=== PATIENT | female | born 1970 | race Caucasian/White ===

== ENCOUNTER 2018-11-04 02:18 | Emergency (ER) | payer OTHER ==
[2018-11-04 02:46] LABS: #Eosinphils 0.1 thou/uL (0.0-0.7); #Monocytes 0.3 thou/uL (0.11-0.59); #Neutrophils 4.1 thou/uL (1.40-6.50); %Basophils 0.9 % (0.0-1.0); %Eosinophils 0.9 % (0.0-10.0); %Neutrophils 74.2 % (42.0-75.0); Hemoglobin 12.4 g/dL (12.0-16.0); Mean Corpuscular Hemoglobin 30.8 pg (27.0-31.0); Mean Corpuscular Volume 93.5 fL (78.0-98.0); Mean Platelet Volume 8.3 fL (7.4-10.4); Platelet Count 225 thou/uL (130-400); RBC Distribution Width 12.3 % (11.5-14.5); Red Blood Cell (RBC) Count 4.01 mill/uL (4.20-5.40); White Blood Cell (WBC) Count 5.5 thou/uL (4.8-10.8)
[2018-11-04] MEDS ORDERED: Ketamine 50 MG/ML (10ML VIAL) ONE (02:53)
[2018-11-04] MEDS ORDERED: Ondansetron PF 4 MG/2 ML Vial ONE (03:32)
--- NOTE | 2018-11-04 07:46 | RAD ---
THREE VIEWS LEFT WRIST: HISTORY: Fall with left wrist pain. FINDINGS: Three views left wrist show a comminuted fracture of the distal radius and associated ulnar styloid f racture. There is also a fracture to the scaphoid waist. Surrounding soft tissue swelling is seen. IMPRESSION: 1. Distal radius and associated ulnar styloid fracture. 2. Scaphoid waist fracture. POS: [facility]
--- NOTE | 2018-11-04 09:01 | RAD ---
LEFT WRIST 2 VIEWS: HISTORY: Post reduction. COMPARISON: Earlier exam same day. FINDINGS: The distal radial and ulnar styloid fractures are again demonstrated. Slight reduction of the dorsal angulation of the distal radial fracture. The scaphoid fracture is more difficult to visualize on t his exam. IMPRESSION: Reduction of distal radial fracture. POS: [facility]
== END 2018-11-04 04:12 | disposition home or self-care (01) ==
LOC: ERS 02:18
DX: S62.002A Unspecified fracture of navicular [scaphoid] bone of left wrist, initial encounter for closed fracture (principal); S52.502A Unspecified fracture of the lower end of left radius, initial encounter for closed fracture; S52.612A Displaced fracture of left ulna styloid process, initial encounter for closed fracture; F41.9 Anxiety disorder, unspecified; Z79.899 Other long term (current) drug therapy; W19.XXXA Unspecified fall, initial encounter
CPT/HCPCS: 25605; 85025; 93005; 96374; 99156; J2405

== ENCOUNTER 2018-11-06 09:34 | Day surgery (SDC) | payer OTHER ==
[2018-11-05 15:52] VITALS: BMI 31.4
[2018-11-06] MEDS ORDERED: ceFAZolin Sodium (SDC) 2 GM/100 ML BAG ONE (09:56)
[2018-11-06] MEDS ORDERED: Midazolam HCl 2 mg/2 ml Vial ONE (10:17)
[2018-11-06] MEDS ORDERED: Fentanyl 100 MCG/2 ML VIAL ONE ×2 (10:17→10:50)
[2018-11-06] MEDS ORDERED: Ropivacaine 0.2% 550 ML 550 ML NERVE BLCK SCH (10:47)
[2018-11-06] MEDS ORDERED: HYDROcodone/Acetaminophen 5/325 mg Tablet PO PRN ×2 (10:47)
[2018-11-06] MEDS ORDERED: Promethazine HCl 25 MG/ML VIAL IM PRN (10:47)
[2018-11-06] MEDS ORDERED: traMADol HCl 50 MG TAB PO PRN ×2 (10:47)
[2018-11-06] MEDS ORDERED: Ondansetron PF 4 MG/2 ML Vial IVP PRN (10:47)
[2018-11-06] MEDS ORDERED: Zolpidem Tartrate 5 MG TAB PO PRN (10:47)
[2018-11-06] MEDS ORDERED: Ketorolac Tromethamine 30 MG/ML VIAL IVP PRN (10:47)
[2018-11-06] MEDS ORDERED: Fentanyl 100 MCG/2 ML VIAL IV PRN (10:49)
[2018-11-06] MEDS ORDERED: Bupivacaine HCl 0.5%/Epinephrine 1:200,000/PF 30 ml Vial ONE (11:21)
--- NOTE | 2018-11-06 13:29 | RAD ---
4 fluoroscopic spot images of the left wrist INDICATION: Open reduction image internal fixation of a distal radial fracture and scaphoid fracture COMPARISON: Radiographs of left wrist dated November 04, 2018 FINDINGS: Since the comparison examination there is been interval open reduction internal fixation of the distal radius fracture. Fracture alignment is near anatomic. The instrumentation projects in expected position. There is a Anthony screw fixating the patient scaphoid fracture. Fracture alignment is near anatomic . The ulnar styloid process fracture is unchanged in position. IMPRESSION: Interval ORIF of the left wrist fractures
--- NOTE | 2018-11-06 14:33 | OP ---
DATE OF PROCEDURE: 11/06/2018 OPERATIONS: 1. Open reduction and internal fixation of left distal radius fracture. 2. Open reduction and internal fixation of left scaphoid fracture. PREOPERATIVE DIAGNOSIS: Left displaced distal radius and scaphoid fracture. POSTOPERATIVE DIAGNOSIS: Left displaced distal radius and scaphoid fracture. COMPLICATIONS: None. ESTIMATED BLOOD LOSS: 50 mL. ANESTHESIA: General plus regional. IMPLANTS: Synthes 3.0-mm partially-threaded screw, headless; and a distal radial plate, volar locking. INDICATIONS: Ms. Carballo fell from a golf cart. She fractured the left radius and scaphoid bone. She was indicated for open reduction and internal fixation to restore anatomic alignment and promote healing. Risks have been reviewed in detail. She elected to proceed with the operation. DESCRIPTION OF PROCEDURE: Ms. Carballo was identified in the preoperative holding area. Her correct extremity was marked. She was carried to the operating room. She was positioned supine. General anesthesia was induced. A multidisciplinary time-out was performed. The left upper extremity was prepped and draped in sterile fashion. We began the procedure with a volar approach to the distal radius. We dissected down through the subcutaneous tissues to the fascia over the FCR tendon. The tendon sheath was opened. We then reflected the tendon and opened the deep aspect of the sheath. At this point, we reflected the pronator quadratus from the distal radius. We examined the fracture, which was comminuted and displaced. We irrigated. We then reduced the fracture using a [place] elevator. At this point, we held this with a K-wire. We then placed our volar distal radial plate. This was placed proximally with a nonlocking screw followed by multiple distal locking screws. We took x-ray images, confirming hardware and plate placement. There were no complications. The reduction was anatomic. We took final images. We thoroughly irrigated this wound and closed in layers appropriately including Monocryl for the skin. At this point, we moved to the scaphoid fracture. We made a small incision dorsally, centered over the scaphoid bone. We dissected down through the subcutaneous tissues and protected neurovascular structures. We then made a small incision into the wrist joint through the capsule. This exposed the proximal pole of the scaphoid. This allowed us to obtain an appropriate start point. We inserted our guidewire from proximal to distal. We overdrilled the guidewire. We then placed our headless compression screw, which was 20-mm in length. This was seated appropriately. We took x-ray images, confirming that it was not prominent. We removed our guidewire. We thoroughly irrigated. We then closed the small wound in layers. We placed the patient in a well-padded splint. She was taken to the recovery room in good condition without complication. Job ID: [id number]
== END 2018-11-06 14:55 | disposition home or self-care (01) ==
LOC: SDC 09:34
PROVIDERS: ATTEND Orthopaedic Surgery
PROC: 0PSN04Z Reposition Left Carpal with Internal Fixation Device, Open Approach (ICD-10-PCS; principal; 2018-11-06)
PROC: 0PSJ04Z Reposition Left Radius with Internal Fixation Device, Open Approach (ICD-10-PCS; principal; 2018-11-06)
PROC: 3E0T3BZ Introduction of Anesthetic Agent into Peripheral Nerves and Plexi, Percutaneous Approach (ICD-10-PCS; principal; 2018-11-06)
DX: S52.532A Colles' fracture of left radius, initial encounter for closed fracture (principal); S62.025A Nondisplaced fracture of middle third of navicular [scaphoid] bone of left wrist, initial encounter for closed fracture; G89.18 Other acute postprocedural pain; Z79.899 Other long term (current) drug therapy; V86.99XA Unspecified occupant of other special all-terrain or other off-road motor vehicle injured in nontraffic accident, initial encounter
CPT/HCPCS: 76000; A4306; C1713; J0670; J0690; J2250; J2795; J3010

== ENCOUNTER 2019-08-18 19:57 | Inpatient (IN) | payer OTHER ==
--- NOTE | 2019-08-18 20:41 | RAD ---
XR Chest 1 View Portable HISTORY: Nausea, vomiting, right upper quadrant abdominal pain COMPARISON: 09/10/2011 FINDINGS: The heart size is normal. The lungs are well expanded without focal areas of consolidation, pneumothorax or pleural effusions. IMPRESSION: No radiographic evidence of acute cardiopulmonary process.
[2019-08-18] MEDS ORDERED: Lidocaine Viscous Sol 2% 15 ml UD Cup ONE (20:45)
[2019-08-18] MEDS ORDERED: Mag-Al 1200 mg/1200 mg/30 ML UDCUP ONE (20:45)
[2019-08-18 20:52] LABS: Bilirubin Negative (Negative); Blood, Urine Negative (Negative); Clarity Clear (Clear); Glucose, Urine (Dipstick) Normal (Negative); Leukocyte Negative Leu/uL (Negative); Nitrite Negative (Negative); Protein, Urine (Dipstick) Negative (Neg-Trace); Urobilinogen Normal mg/dL (Less than 2)
[2019-08-18] MEDS ORDERED: Ondansetron PF 4 MG/2 ML Vial ONE (21:20)
[2019-08-18] MEDS ORDERED: Pantoprazole 40 MG VIAL ONE (21:20)
[2019-08-18] MEDS ORDERED: Morphine 4 MG/ML VIAL ONE (21:20)
[2019-08-18 21:24] LABS: #Eosinphils 0.2 thou/uL (0.0-0.7); #Lymphocytes 1.6 thou/uL (1.20-3.40); #Monocytes 0.5 thou/uL (0.11-0.59); #Neutrophils 5.6 thou/uL (1.40-6.50); %Basophils 0.4 % (0.0-1.0); %Eosinophils 2.5 % (0.0-10.0); %Lymphocytes 20.3 % (21.0-51.0); %Monocytes 6.4 % (0.0-10.0); %Neutrophils 70.3 % (42.0-75.0); Mean Corpuscular HGB CONC 32.4 g/dL (32.0-36.0); Mean Corpuscular Hemoglobin 30.8 pg (27.0-31.0); Mean Platelet Volume 8.9 fL (7.4-10.4); Platelet Count 230 thou/uL (130-400); RBC Distribution Width 12.1 % (11.5-14.5); Red Blood Cell (RBC) Count 4.22 mill/uL (4.20-5.40)
[2019-08-18 21:47] LABS: ALT (SGPT) 16 U/L (8-55); AST (SGOT) 17 U/L (5-34); Albumin 4.2 g/dL (3.5-5.0); Alkaline Phosphatase 65 U/L (40-110); Anion Gap 12 mmol/L (10-20); BUN (Urea Nitrogen) 11 mg/dL (7.0-18.7); Bilirubin, Total 0.2 mg/dL (0.2-1.2); CK (CPK) 215 U/L (29-168); Calc. Creatinine Clearance 0 mL/min (70-130); Carbon Dioxide 24 mmol/L (22-29); Chloride 106 mmol/L (98-107); Estimated GFR-MDRD 69; Globulin 3.1 g/dL (2.4-3.5); Glucose 112 mg/dL (70-105); Lipase 32 U/L (8-78); Potassium 4.2 mmol/L (3.5-5.1); Protein, Total 7.3 g/dL (6.0-8.3); Sodium 138 mmol/L (136-145)
[2019-08-18 21:48] LABS: BHCG - Serum Negative (NEGATIVE); Pregs Control Background? CLEAR/WHITE (CLR/WHITE); Pregs Control Bar Appear? YES (CONTROL BAR)
--- NOTE | 2019-08-18 22:00 | ULT ---
GALLBLADDER ULTRASOUND: HISTORY: Right upper quadrant abdominal pain FINDINGS: The liver demonstrates homogeneous echotexture without focal mass or intrahepatic biliary ductal dila tation. There are shadowing gallstones with gallbladder wall thickening measuring 4 mm in thickness. No peric holecystic fluid is seen. The right kidney is normal. The pancreas is not well visualized due to overlying bowel gas. The common duct [id number] in diameter. No free fluid is seen in the Donaldson's pouch. IMPRESSION: Cholelithiasis with mild gallbladder wall thickening. If there is concern for acute cholecystitis, HIDA scan should be performed.
[2019-08-18] MEDS ORDERED: MEROPENEM 1 GM/50 ML 1 GM in Premix Bag 1 BAG IVPB SCH (22:45)
[2019-08-18] MEDS ORDERED: D5 1/2 NS w/20 mEq KCL 1,000 ML IV SCH (23:45)
[2019-08-18] MEDS ORDERED: Ondansetron ODT 4 MG TAB SL PRN (23:47)
[2019-08-18] MEDS ORDERED: Ondansetron PF 4 MG/2 ML Vial IVP PRN (23:47)
[2019-08-18] MEDS ORDERED: Morphine 4 MG/ML VIAL SLOW IVP PRN (23:48)
[2019-08-19] MEDS ORDERED: Zolpidem Tartrate 5 MG TAB PO SCH ×2 (00:30→21:00)
[2019-08-19 01:35] VITALS: BMI 37.8
[2019-08-19] MEDS ORDERED: Ketorolac Tromethamine 30 MG/ML VIAL IVP PRN (04:53)
[2019-08-19] MEDS ORDERED: Morphine 4 MG/ML VIAL SLOW IVP PRN (04:53)
--- NOTE | 2019-08-19 08:53 | HP ---
HISTORY OF PRESENT ILLNESS: A 49-year-old female, single furlough during the COVID pandemic, previously worked at [employer], has had for the past week intermittent pain epigastric right upper quadrant. She had acute pain onset 2 days ago, unrelenting, presented to the emergency room, found to have multiple gallstones with normal common bile duct caliber of 3 mm. There is no ductal dilatation. Liver function tests are normal. ALLERGIES: NONE. SOCIAL HISTORY: Tobacco, none. Alcohol rarely. MEDICATIONS: Zolpidem, escitalopram. PAST SURGICAL HISTORY: Rotator cuff, ORIF left wrist. PAST MEDICAL HISTORY: Noncontributory otherwise. REVIEW OF SYSTEMS: Noncontributory 10 point. FAMILY HISTORY: Noncontributory. PHYSICAL EXAMINATION: VITAL SIGNS: Height 5 foot 6 inches, 234 pounds, 37 BMI, 97.9, 69, 95/62. HEENT: Unremarkable. LUNGS: Clear to auscultation. CARDIAC: Regular rate and rhythm. No murmur or gallop. ABDOMEN: Soft. Tenderness in right upper quadrant with mild guarding. EXTREMITIES: Unremarkable. ASSESSMENT AND PLAN: Acute cholecystitis, cholelithiasis, chronic cholecystitis. Recommend laparoscopic video cholecystectomy. Risks of infection, bleeding, visceral and biliary injury explained. Questions answered. Process explained to the patient. Plan discharge home later today. She notes that [employer] does not work well for controlling her pain. Job ID: [id number]
[2019-08-19] MEDS ORDERED: Ibuprofen 600 MG TAB PO PRN (09:15)
[2019-08-19] MEDS ORDERED: Acetaminophen 500 MG TAB PO PRN (09:15)
[2019-08-19] MEDS ORDERED: HYDROcodone/Acetaminophen 5/325 mg Tablet PO PRN ×2 (09:15)
[2019-08-19] MEDS ORDERED: Bupivacaine PF 0.5% 30 ML VIAL ONE (09:43)
[2019-08-19] MEDS ORDERED: Lidocaine 1% w/Epinephrine 1:100K 20 ML VIAL ONE (09:43)
[2019-08-19] MEDS ORDERED: Ondansetron PF 4 MG/2 ML Vial ONE (09:50)
[2019-08-19] MEDS ORDERED: Rocuronium Bromide 10 MG/ML (10ML VIAL) ONE (09:50)
[2019-08-19] MEDS ORDERED: Lidocaine 1% PF 5 ML VIAL ONE (09:50)
[2019-08-19] MEDS ORDERED: PHENYLEPHRINE-NS 100 MCG/ML 10 ML SYRINGE ONE (09:50)
[2019-08-19] MEDS ORDERED: Fentanyl 100 MCG/2 ML VIAL ONE ×2 (09:50→11:10)
[2019-08-19] MEDS ORDERED: Dexamethasone 20 MG/5 ML VIAL ONE (09:50)
[2019-08-19] MEDS ORDERED: PROPOFOL 200 MG/20 ML VIAL ONE (09:50)
[2019-08-19] MEDS ORDERED: Glycopyrrolate 0.2 MG/ML 5 ML SYRINGE ONE (09:50)
[2019-08-19] MEDS ORDERED: SUGAMMADEX SODIUM 200 MG/2 ML VIAL ONE (10:50)
[2019-08-19] MEDS ORDERED: Promethazine HCl 25 MG/ML VIAL ONE (11:00)
--- NOTE | 2019-08-19 11:53 | OP ---
DATE OF PROCEDURE: 08/19/2019 PREOPERATIVE DIAGNOSES: Chronic cholecystitis, cholelithiasis, acute cholecystitis. POSTOPERATIVE DIAGNOSES: Chronic cholecystitis, cholelithiasis, acute cholecystitis. PROCEDURE PERFORMED: Laparoscopic video cholecystectomy. ANESTHESIA: General, local 0.5% Marcaine 30 mL mixed to 1% Xylocaine with epinephrine 20 mL. DESCRIPTION OF PROCEDURE: The patient was taken to the operating room where under general anesthesia, abdomen was prepared with ChloraPrep and draped in the routine fashion. Local anesthetic was infiltrated in the skin and subcutaneous tissue at each port site. A vertical incision was made and pneumoperitoneum to 15 mmHg was obtained with a Veress needle, replaced with a 5 port, video laparoscope inserted. Right subxiphoid incision was made and 11 port placed. Right subcostal incision was made at midclavicular entrance line and the 5 port was placed. Liver appeared to be normal. The fundus of the gallbladder was grasped at cephalad. Infundibulum was grasped and reflected laterally. Cystic artery and duct were dissected free. Critical view obtained. Cystic artery and duct double clipped proximally and divided, gallbladder dissected free from liver bed, obtaining good hemostasis prior to division of the final peritoneal attachments. Gallbladder and contents removed, submitted to Pathology. Good hemostasis was ensured with the cautery. Irrigant and pneumoperitoneum were evacuated. All instruments were removed. All skin incisions were approximated with interrupted subdermal 4-0 Monocryl and [place] glue applied. Job ID: [id number]
--- NOTE | 2019-08-19 12:11 | DIS ---
DATE OF ADMISSION: 08/18/2019 DATE OF DISCHARGE: 08/19/2019 PREOPERATIVE HOSPITALIZATION DIAGNOSES: Cholecystitis, cholelithiasis. PROCEDURES: 1. Ultrasound of the gallbladder in the emergency room. 2. Laparoscopic video cholecystectomy. HISTORY: A 49-year-old female with symptomatic cholelithiasis for the last 2 weeks, intermittent pain, had severe pain, presenting to the emergency room. An ultrasound confirmed cholelithiasis with normal bile duct caliber, normal liver function test. She is hydrated, given intravenous antibiotics in the next morning, taken for laparoscopic video cholecystectomy after which she was discharged. Diet and activity as tolerated. No lifting restrictions. Shower and bathe whenever. Follow up in my office in 2 to 3 weeks. She stated that [employer] did not work for her for pain control that she was given. Instruction is to take [id number] Tylenol 1000 mg p.o. q.i.d. p.r.n. pain, Motrin 600 mg p.o. q.i.d. p.r.n. pain and if necessary, then take [place] 5/325 one to two p.o. t.i.d. p.r.n. pain, 25 given. Job ID: [id number]
[2019-08-19 17:57] VITALS: BP 103/67; TEMP 98
== END 2019-08-19 17:45 | disposition home or self-care (01) | DRG 419 ==
LOC: ERS 19:57 → SURG A 22:11
PROVIDERS: ADMIT Specialist; ATTEND Specialist
PROC: 0FT44ZZ Resection of Gallbladder, Percutaneous Endoscopic Approach (ICD-10-PCS; principal; 2019-08-19)
DX: K80.12 Calculus of gallbladder with acute and chronic cholecystitis without obstruction (principal); F41.9 Anxiety disorder, unspecified; Z79.899 Other long term (current) drug therapy
CPT/HCPCS: 71045; 76705; 80053; 81003; 82550; 83690; 84484; 84703; 85025; 88304; 93005; C9113; J1100; J1885; J1956; J2001; J2185; J2270; J2405; J2550; J2704; J3010; J3480; S0020